=== PATIENT | female | born 1985 | race Caucasian/White ===

== ENCOUNTER 2019-01-25 13:02 | Emergency (ER) | payer OTHER, SELFPAY ==
[2019-01-25 13:12] VITALS: BP 114/74; PULSE 90; RESP 12; TEMP 36.6; O2SAT 99
[2019-01-25 15:01] VITALS: BP 115/80; PULSE 85; RESP 12
--- NOTE | 2019-01-25 15:52 | ED.HA ---
HPI - Headache <ANASTACIO GarciaFORMERLY [facility] - Last Filed: 01/25/19 15:55> General Chief Complaint: Headache Stated Complaint: dizzy,throwing up,everything feels delayed Time Seen by Provider: 01/25/19 13:34 Source: patient Mode of arrival: Ambulatory Limitations: no limitations History of Present Illness HPI Narrative: The patient is a 33-year-old female current smoker with history of depression who presents with a chief complaint of a headache behind her eye earlier today. She complains of wooziness stating that she feels like everything is delayed. She states she threw up once. Denies any fever, current nausea vomiting or diarrhea. She denies any numbness or tingling. Her children go to school all, but she has not been exposed to anything other illnesses that she knows of. She states general malaise, just not ?feeling right. Related Data Home Medications Medication Instructions Recorded Confirmed albuterol sulfate [ProAir HFA] 1 puff INHALATION PRN PRN 01/25/19 citalopram 40 mg PO DAILY 01/25/19 01/25/19 lamotrigine 25 mg PO DAILY 01/25/19 01/25/19 loratadine 10 mg PO DAILY 01/25/19 01/25/19 Review of Systems <ANASTACIO GarciaFORMERLY [facility] - Last Filed: 01/25/19 15:55> Review of Systems Narrative: GENERAL: Denies chills, fatigue, malaise, fever, sweats. HEENT: Denies sinus pain, ear pain, sore throat, difficulty swallowing, dizziness. RESPIRATORY: Denies dyspnea, cough, wheezing, hemoptysis, sputum. CARDIOVASCULAR: Denies chest pain, palpitations, orthopnea, edema, GASTROINTESTINAL: Denies nausea, vomiting, abdominal pain, diarrhea, constipation, melena. : Denies dysuria, frequency, incontinence, hematuria, urinary retention. MUSCULOSKELETAL: denies weakness, joint pain, or bony pain SKIN: Denies rash, skin lesions, or other NEUROLOGIC: See HPI PSYCHIATRIC: No concerning psychosocial issues. 12 point review of systems is negative except for those stated above Patient History <ANASTACIO GarciaFORMERLY [facility] - Last Filed: 01/25/19 15:55> Social History Smoking Status: Current some day smoker Smoking Status: Current some day smoker Substance Use Type: does not use Exam <SAMUYA Garcia-BC - Last Filed: 01/25/19 15:55> Narrative Exam Narrative: GENERAL: This is a well-nourished, well-developed patient, in no acute distress HEAD: Atraumatic. Normocephalic. No temporal or scalp tenderness. EYES: Pupils equal round and reactive. Extraocular motions intact. No scleral icterus. No injection or drainage. ENT: Nose without bleeding, purulent drainage or septal hematoma. Throat without erythema, tonsillar hypertrophy or exudate. Uvula midline. Airway patent. Dry mucous membranes noted. NECK: Trachea midline. No JVD or lymphadenopathy. Supple, nontender, no meningeal signs. CARDIOVASCULAR: Regular rate and rhythm without murmurs, gallops, or rubs. RESPIRATORY: Clear to auscultation. Breath sounds equal bilaterally. No wheezes, rales, or rhonchi. No cough. No increased respiratory effort. No accessory muscle use. GASTROINTESTINAL: Abdomen soft, non-tender, nondistended. No hepato-splenomegaly, or palpable masses. No guarding. EXTREMITIES: No clubbing, cyanosis, or edema. No joint tenderness, effusion, or edema noted. BACK: Nontender without deformity or crepitance. No flank tenderness. NEURO: AOx3. Strength is equal upper and lower extremities bilaterally. Stable gait. Clear speech. SKIN: No rash or erythema on visible skin Initial Vital Signs Initial Vital Signs: Vital Signs Temperature 97.8 F 01/25/19 13:12 Pulse Rate 90 01/25/19 13:12 Respiratory Rate 12 01/25/19 13:12 Blood Pressure 114/74 01/25/19 13:12 Pulse Oximetry 99 01/25/19 13:12 <Dianne Jerry MD - Last Filed: 01/25/19 16:31> Initial Vital Signs Initial Vital Signs: Vital Signs Temperature 97.8 F 01/25/19 13:12 Pulse Rate 90 01/25/19 13:12 Respiratory Rate 12 01/25/19 13:12 Blood Pressure 114/74 01/25/19 13:12 Pulse Oximetry 99 01/25/19 13:12 Scores <DIANN Garcia - Last Filed: 01/25/19 15:55> GCS [place] coma scale eye opening: Spontaneous [place] coma scale verbal response: Orientated Sathya coma scale motor response: Obey commands Sathya coma scale total score: 15 Course <SAUMYA Garcia-BC - Last Filed: 01/25/19 15:55> Vital Signs Vital signs: Vital Signs - 8 hr 01/25/19 13:12 01/25/19 15:01 Temperature 97.8 F Pulse Rate 90 85 Respiratory Rate 12 12 Blood Pressure 114/74 115/80 Pulse Oximetry 99 <Dianne Jerry MD - Last Filed: 01/25/19 16:31> Vital Signs Vital signs: Vital Signs - 8 hr 01/25/19 13:12 01/25/19 15:01 Temperature 97.8 F Pulse Rate 90 85 Respiratory Rate 12 12 Blood Pressure 114/74 115/80 Pulse Oximetry 99 MDM - Headache <SAUMYA Garcia-BC - Last Filed: 01/25/19 15:55> MDM Narrative Medical decision making narrative: The patient is a 33-year-old female who presents with a chief complaint of ?wooziness and not feeling right today. I discussed at length that we could do lab work to check for anemia, give her IV fluids as she has dry mucous membranes, consider imaging. Discussed the possibility of stroke. However patient is GCS 15, competent to make her own decisions and states that she would rather go home and follow up with primary care provider. She states that she has felt better while waiting in the emergency department without intervention. She is competent to make her own decisions, states that she will come back to the emergency department if she has any acute concerns and would rather follow up with primary care provider. Patient has no questions or concerns upon discharge and states understanding of return precautions as well as follow-up care. I did discuss that we have done no imaging or lab work, and she is okay with this. I discussed the possibility of a missed diagnosis, possibly something serious such as a stroke. Patient states understanding and states she still wants to leave as she feels better. Discharge Plan Departure Patient Disposition: Home Clinical Impression: Wooziness Discharge Date/Time: 01/25/19 15:02 Instructions: DI for Dizziness-Nonvertigo Activity Restrictions/Additional Instructions: Today you came to the emergency department for headache, general malaise not feeling well and dizziness You declined any workup in the emergency department such as fluids, flu testing, lab work, possible imaging as you are feeling better and would prefer to follow up with primary care provider. Please follow-up with primary care provider in the next few days. Please come back to the emergency department for any acute concerns Prescriptions: No Action citalopram 40 mg tablet 40 mg PO DAILY RF: 0 albuterol sulfate [ProAir HFA] 90 mcg/actuation HFA aerosol inhaler 1 puff inhalation PRN PRN (Reason: Shortness Of Breath) RF: 0 loratadine 10 mg tablet 10 mg PO DAILY RF: 0 lamotrigine 25 mg tablet extended release 24hr 25 mg PO DAILY RF: 0 Referrals: Jyoti Navarrete, [Non-Staff] -
== END 2019-01-25 15:02 | disposition home or self-care (01) ==
PROVIDERS: Emergency Provider Nurse Practitioner Family
DX: R42 Dizziness and giddiness (principal); R51 Headache; R53.81 Other malaise
CPT/HCPCS: 99281; 99282

== ENCOUNTER → 2020-08-21 19:07 | Outpatient (CLI) | payer OTHER, SELFPAY ==
--- NOTE | 2020-08-21 | DI.MRI.S_ITS ---
PROCEDURE: MR ELBOW RT WO CON INDICATIONS: RIGHT ELBOW INJURY TECHNIQUE: Noncontrast coronal proton density fast spin echo and T2 fast spin echo with fat saturation, axial and sagittal T1 spin echo and T2 fast spin echo with fat saturation through the elbow. COMPARISON: None. FINDINGS: Image quality: Excellent. Lateral structures: The lateral ulnar collateral ligament and radial collateral ligament both appear intact. The overlying common extensor tendon origin demonstrates intermediate signal intensity and mild thickening, compatible with moderate tendinosis. Evaluation is mildly compromised by inhomogeneous fat suppression multiple sequences, but there appears to be a small amount of fluid signal that is best seen on axial images, which is consistent with a superimposed low-grade partial intrasubstance tear. Medial structures: The ulnar collateral ligament appears intact. The overlying common flexor tendon appears normal. The ulnar nerve appears normal in size and signal within the cubital tunnel. Anterior structures: The biceps and brachialis tendons both appear intact as they insert onto the proximal radius and ulna, respectively. No bicipitoradial bursal fluid. The median and radial neurovascular bundles appear normal; no focal muscle atrophy to suggest nerve impingement. Posterior structures: The conjoint triceps tendon from the long and lateral heads appears intact. The medial head of the triceps tendon also appears normal, with direct muscle insertion onto the olecranon. No olecranon bursal fluid. Bone and cartilage: No bone marrow contusions or fractures. No osteochondral injuries. IMPRESSION: Low-grade partial tearing of the common extensor tendon at its origin superimposed on moderate tendinosis. Dictated by: Navi Flores M.D. on 08/22/2020 at 9:07 Approved by: Navi Flores M.D. on 08/22/2020 at 9:15
== END ==
PROVIDERS: PCP Family Medicine; Referring Provider Family Medicine; Visit Provider Family Medicine
DX: S56.511A Strain of other extensor muscle, fascia and tendon at forearm level, right arm, initial encounter (principal); M25.521 Pain in right elbow; M79.2 Neuralgia and neuritis, unspecified
CPT/HCPCS: 73221